=== PATIENT | male | born 1940 | race Caucasian/White ===

== ENCOUNTER → 2016-03-25 | Outpatient (CLI) | payer MEDICARE ==
[~2016-03-25] MED LIST: AMOX500C PO; ASPI81TA81 PO; BIOT50005 PO; CENTTAB PO; CHLO4TAB PO; CLON0.5T PO; FISH1000 PO; LISI-515 PO; METO25TA6 PO; MIRT45TA PO; PRAM1.5T PO; PRIL20CA9 PO; REDCAP2 PO; TRAZ100T4 PO
[2016-03-25 10:03] LABS: AUTOMATED NEUTROPHIL # 2.7 TH/MM3 (1.8-7.7); BASOPHIL % 0.4 % (0.0-2.0); EOSINOPHIL # 0.2 TH/MM3 (0-0.4); HEMATOCRIT 43.8 % (39.0-51.0); HEMO FLAGS DIFF FINAL; LYMPHOCYTE # 1.5 TH/MM3 (1.0-4.8); MEAN CELL VOLUME 87.7 FL (80.0-100.0); MEAN CORPUSCULAR HEMOGLOBIN 30.5 PG (27.0-34.0); MEAN CORPUSCULAR HGB CONC 34.7 % (32.0-36.0); MONO % 7.7 % (0.0-8.0); NEUT % 55.9 % (16.0-70.0); PLATELET COUNT 212 TH/MM3 (150-450); RED CELL DISTRIBUTION WIDTH 13.6 % (11.6-17.2); WHITE BLOOD COUNT 4.8 TH/MM3 (4.0-11.0)
[2016-03-25 10:08] LABS: APTT (PATIENT) 27.3 SEC (24.3-30.1); PROTHROMBIN TIME - PATIENT 10.7 SEC (9.8-11.6)
[2016-03-25 10:21] LABS: BLOOD, URINE TRACE (NEG); COMMENT (UR) CULTURE INDICATED; CULTURE IF INDICATED CULTURE INDICATED; GLUCOSE,URINE NEG (NEG); KETONE, URINE NEG (NEG); NITRITE,URINE NEG (NEG); SQUAMOUS EPITHELIAL CELL URINE <1 /hpf (0-5); URINE COLOR YELLOW (YELLW/STRAW)
[2016-03-25 10:23] LABS: ALKALINE PHOSPHATASE 89 U/L (45-117); ALT (GPT) 30 U/L (12-78); ANION GAP 9 MEQ/L (5-15); AST (GOT) 13 U/L (15-37); BICARBONATE 27.1 MEQ/L (21.0-32.0); BLOOD UREA NITROGEN 18 MG/DL (7-18); CHLORIDE 104 MEQ/L (98-107); GLOMERULAR FILTRATION RATE 72 ML/MIN (>89); GLUCOSE,FASTING 130 MG/DL (74-99); SODIUM (NA) 140 MEQ/L (136-145); TOTAL BILIRUBIN ADULT 0.5 MG/DL (0.2-1.0)
[2016-03-25 10:24] LABS: WESTERGREN SEDIMENTATION RATE 3 mm/hr (0-20)
--- NOTE | 2016-03-25 11:37 | RADRPT ---
EXAM DATE/TIME: 03/25/2016 11:19 [place] COMPARISON: No previous studies available for comparison. INDICATIONS : Evaluate for pneumonia, pneumothorax and communicable diseases. Pre-op hip surgery MEDICAL HISTORY : None. SURGICAL HISTORY : None. ENCOUNTER: Initial ACUITY: 1 day PAIN SCORE: 0/10 LOCATION: chest FINDINGS: PA and lateral views of the chest demonstrate the lungs to be symmetrically aerated without evidence of mass, infiltrate or effusion. The cardiomediastinal contours are unremarkable. Osseous structure s are intact. CONCLUSION: No acute disease. Wang Childers MD FACR on March 25, 2016 at 11:35 Board Certified Radiologist. This report was verified electronically.
--- NOTE | 2016-03-25 19:19 | EKG ---
Date Performed: 03/25/2016 Time Performed: 09:24:33 PTAGE: 75 years EKG: Sinus rhythm WITH FIRST DEGREE AV BLOCK LEFT BUNDLE BRANCH BLOCK ABNORMAL ECG NO PREVIOUS TRACING DOCTOR: Parish Vivas Interpretating Date/Time 03/25/2016 19:17:36
== END ==
LOC: CPRE 08:46
PROVIDERS: ATTEND Orthopaedic Surgery Sports Medicine
DX: Z01.810 Encounter for preprocedural cardiovascular examination (principal); Z01.812 Encounter for preprocedural laboratory examination; M16.12 Unilateral primary osteoarthritis, left hip; R82.90 Unspecified abnormal findings in urine; M25.50 Pain in unspecified joint; Z79.01 Long term (current) use of anticoagulants
CPT/HCPCS: 36415; 71020; 80053; 81001; 85025; 85610; 85652; 85730; 87086; 93005

== ENCOUNTER 2016-04-12 05:25 | Day surgery (SDC) | payer MEDICARE ==
[~2016-04-12] VITALS: Ht 185.4 cm; Wt 86.3 kg
[2016-04-12] MEDS ORDERED: CHLORHEXIDINE GLUCONATE 4% SOLN 120 ML BTL TOP SCH (06:00)
[2016-04-12] MEDS ORDERED: INSULIN HUMAN REGULAR 1,000 UNITS/10 ML VIAL SQ PRN (06:00)
[2016-04-12] MEDS ORDERED: LACTATED RINGER'S 1000 ML IV SCH (06:00)
[2016-04-12] MEDS ORDERED: METOPROLOL TARTRATE 25 MG TAB PO PRN (06:00)
[2016-04-12] MEDS ORDERED: ceFAZolin 2 GM PREMIX 50 ML IV SCH (06:00)
[2016-04-12] MEDS ORDERED: VANCOMYCIN 1000 MG/NS 250 ML (for <70 kg) IV SCH ×2 (06:00)
[2016-04-12] MEDS ORDERED: POVIDONE IODINE 7.5% SCRUB 118 ML BOTTLE TOP SCH (06:00)
[2016-04-12] MEDS ORDERED: SODIUM CHLORID 0.9% 500 ML IV SCH (06:00)
[2016-04-12 06:16] VITALS: BP 131/71; PULSE 67; RESP 16; TEMP 97.8; O2SAT 96
[2016-04-12] MEDS ORDERED: TRANEXAMIC PERI-ARTICULAR 3,000 MG/NS 100 ML P-ARTICULR SCH ×2 (07:00)
[2016-04-12] MEDS ORDERED: EXPAREL PERI-ARTICULAR INJECTION (TOTAL VOL. 60 ML) P-ARTICULR SCH ×2 (07:00)
[2016-04-12] MEDS ORDERED: SODIUM CHLORIDE 0.9% IV SCH (07:00)
[2016-04-12] MEDS ORDERED: TRANEXAMIC ACID IV SCH (07:00)
== END 2016-04-12 07:12 | disposition home or self-care (01) ==
LOC: UNDOADMIN 05:25 → HSDI 05:25 → HSDC 05:25 → EDSTATUS 07:00 → HSDC 07:12 → UNDODISIN 07:12
PROVIDERS: ATTEND Orthopaedic Surgery Sports Medicine
DX: M25.552 Pain in left hip (principal); Z53.8 Procedure and treatment not carried out for other reasons; R21 Rash and other nonspecific skin eruption
CPT/HCPCS: 86850; 86900; 86901; G0463; J0690; J3370; J7050; J7120; 99211